=== PATIENT | male | born 1980 | race Asian ===

== ENCOUNTER 2024-09-30 17:24 | Emergency (ER) | payer OTHER, SELFPAY ==
[2024-09-30 17:45] VITALS: BP 116/65; PULSE 76; RESP 19; TEMP 36.9; O2SAT 98; BMI 29.2
== END 2024-09-30 20:00 | disposition left against medical advice (07) ==
PROVIDERS: Emergency Provider Emergency Medicine
DX: M79.89 Other specified soft tissue disorders (principal)
CPT/HCPCS: 99281

== ENCOUNTER 2025-05-25 16:09 | Emergency (ER) | payer OTHER, SELFPAY ==
[2025-05-25 16:42] VITALS: BP 154/101; PULSE 82; RESP 18; TEMP 37.3; O2SAT 97; BMI 31.9
--- NOTE | 2025-05-25 16:45 | DI.RAD.S_ITS ---
PROCEDURE: XR HAND LT MIN 3V INDICATIONS: pain TECHNIQUE: 3 views of the hand(s) acquired. COMPARISON: None. FINDINGS AND IMPRESSION: Moderately displaced proximal 4th metacarpal shaft fracture. No suspicious soft tissue calcifications. There is surrounding soft tissue swelling. Dictated by: Hilton Bustillos M.D. on 05/25/2025 at 17:58 Approved by: Hilton Bustillos M.D. on 05/25/2025 at 17:58
[2025-05-25] MEDS: KETOROLAC 30 MG/ML VIAL IM (18:04)
[2025-05-25] MEDS: ACETAMINOPHEN 325 MG TABLET 975 MG PO (18:05)
--- NOTE | 2025-05-25 18:28 | ED.UPPEXIN ---
HPI - Extremity Injury (Upper) <Lauri Andrade PA-C - Last Filed: 05/25/25 18:41> General Chief Complaint: Extremity Injury, Upper Stated Complaint: broken left hand Time Seen by Provider: 05/25/25 16:45 Source: patient Mode of arrival: Ambulatory History of Present Illness HPI narrative: 44-year-old male presents to the ED with 1 week of left hand swelling, after a basketball injury. Patient endorses swelling, pain in the left hand. Denies numbness, tingling, weakness. Patient has hand was x-rayed at the [facility] which shows a 4th metacarpal shaft fracture. Related Data Allergies Allergy/AdvReac Type Severity Reaction Status Date / Time No Known Drug Allergies Allergy Verified 05/25/25 16:42 Review of Systems <Lauri Andrade PA-C - Last Filed: 05/25/25 18:41> Constitutional Constitutional: Denies chills, Denies fatigue, Denies fever(s), Denies frequent falls, Denies lethargy and Denies weakness Eyes Eyes: Denies change in vision, Denies eye discharge, Denies irritation and Denies loss of vision ENT Ears, Nose, Mouth, and Throat: Denies change in voice, Denies dizziness, Denies neck pain, Denies sore throat and Denies throat swelling Cardiovascular Cardiovascular: Denies chest pain, Denies irregular heart rhythm, Denies lightheadedness, Denies palpitations, Denies dyspnea, Denies dyspnea on exertion and Denies orthopnea Respiratory Respiratory: Denies cough, Denies dyspnea, Denies dyspnea on exertion and Denies wheezing Gastrointestinal Gastrointestinal: Denies abdominal pain, Denies change in bowel habits, Denies diarrhea, Denies nausea and Denies vomiting Musculoskeletal Musculoskeletal: Denies neck pain and Denies numbness Comments: Left hand swelling, pain Integumentary/Breasts Skin/Breast: Denies pruritus, Denies erythema, Denies rash and Denies wounds Neurologic Neurologic: Denies behavioral changes, Denies confusion, Denies dizziness, Denies frequent falls, Denies loss of vision, Denies numbness and Denies weakness Psychiatric Psychiatric: Denies anxiety, Denies behavioral changes, Denies confusion, Denies depression, Denies homicidal ideation and Denies suicidal ideation Endocrine Endocrine: Denies fatigue, Denies flushing and Denies palpitations Hematologic/Lymphatic Hematologic/Lymphatic: Denies easy bruising Allergic/Immunologic Allergic/Immunologic: Denies urticaria, Denies throat swelling and Denies wheezing Patient History <Lauri Andrade PA-C - Last Filed: 05/25/25 18:41> Social History Smoking Status: Never smoker Smoking Status: Never smoker Exam <Lauri Andrade PA-C - Last Filed: 05/25/25 18:41> Narrative Exam Narrative: Const General:?cooperative, healthy appearing and comfortable [facility] Head:?normal to inspection Ears:?hearing grossly normal bilaterally Nose:?external nose normal Face and sinus:?normal facial exam and sinuses nontender Mouth:?oral mucosae normal Throat:?posterior oropharynx normal Eyes General:?appearance normal, both eyes and all related structures Neck Neck:?normal visual inspection and no lymphadenopathy noted Resp Effort & Inspection:?normal respiratory effort Auscultation:?clear to auscultation bilaterally Cardio Rate:?regular rate Rhythm:?regular rhythm Musculoskeletal There is left hand swelling, tenderness to palpation. Neurovascularly intact. Compartments are soft. Neuro General:?patient alert, patient awake and patient oriented x3 Initial Vital Signs Initial Vital Signs: Vital Signs Temperature 99.2 F 05/25/25 16:42 Pulse Rate 82 05/25/25 16:42 Respiratory Rate 18 05/25/25 16:42 Blood Pressure 154/101 H 05/25/25 16:42 Pulse Oximetry 97 05/25/25 16:42 Oxygen Delivery Method Room Air 05/25/25 16:42 <Juli Barkley DO - Last Filed: 05/26/25 23:32> Initial Vital Signs Initial Vital Signs: Vital Signs Temperature 99.2 F 05/25/25 16:42 Pulse Rate 82 05/25/25 16:42 Respiratory Rate 18 05/25/25 16:42 Blood Pressure 154/101 H 05/25/25 16:42 Pulse Oximetry 97 05/25/25 16:42 Oxygen Delivery Method Room Air 05/25/25 16:42 Course <Lauri Andrade PA-C - Last Filed: 05/25/25 18:41> Orders Ordered: Discontinued Medications Acetaminophen (Acetaminophen 325 Mg Tablet) 975 mg PO NOW ONE Stop: 05/25/25 16:46 Last Admin: 05/25/25 18:05 Dose: 975 mg Documented By: ELLA Ketorolac Tromethamine (Ketorolac 30 Mg/Ml Vial) 30 mg IM NOW ONE Stop: 05/25/25 16:46 Last Admin: 05/25/25 18:04 Dose: 30 mg Documented By: ELLA Vital Signs Vital signs: Vital Signs - 8 hr 05/25/25 16:42 Temperature 99.2 F Pulse Rate 82 Respiratory Rate 18 Blood Pressure 154/101 H Pulse Oximetry 97 Oxygen Delivery Method Room Air <Juli Barkley DO - Last Filed: 05/26/25 23:32> Orders Ordered: Discontinued Medications Acetaminophen (Acetaminophen 325 Mg Tablet) 975 mg PO NOW ONE Stop: 05/25/25 16:46 Last Admin: 05/25/25 18:05 Dose: 975 mg Documented By: ELLA Ketorolac Tromethamine (Ketorolac 30 Mg/Ml Vial) 30 mg IM NOW ONE Stop: 05/25/25 16:46 Last Admin: 05/25/25 18:04 Dose: 30 mg Documented By: ELLA Vital Signs Vital signs: Vital Signs - 8 hr 05/25/25 16:42 Temperature 99.2 F Pulse Rate 82 Respiratory Rate 18 Blood Pressure 154/101 H Pulse Oximetry 97 Oxygen Delivery Method Room Air MDM - Extremity Injury (Upper) <Lauri Andrade PA-C - Last Filed: 05/25/25 18:41> MDM Narrative Medical decision making narrative: 44-year-old male presents to the ED with 1 week of left hand swelling, after a basketball injury. We will re-x-ray the left hand to confirm any changes to alignment. X-ray shows largely unchanged proximal 4th metacarpal shaft fracture which is moderately displaced. There is some surrounding soft tissue swelling. Compartments are soft. Discussed findings with patient. Recommend ibuprofen or Aleve for pain. Will apply splint, recommend follow-up with ortho. ED return precautions discussed with patient. Patient verbalized understanding. Medical records reviewed: Yes Discharge Plan Departure Patient Disposition: Home Clinical Impression: Boxer's fracture Qualifiers: Encounter type: initial encounter Fracture type: closed Qualified Code(s): S62.339A - Displaced fracture of neck of unspecified metacarpal bone, initial encounter for closed fracture Instructions: DI for Boxer's Fracture Activity Restrictions/Additional Instructions: You were evaluated in the ED today for a left hand injury. You have a fracture of the 4th metacarpal, for which you are being fitted with a splint. Please keep the splint on for 6 weeks. Please follow-up with an ortho specialist as soon as possible. You may take Tylenol, Motrin or Aleve for pain. Return to the emergency room if you have worsening symptoms, numbness, tingling, weakness. Referrals: Provider,Mary PEREZ [Primary Care Provider, Family Practice] Stand Alone Forms: Patient Portal/API ED Sign-out <Juli Barkley DO - Last Filed: 05/26/25 23:32> Cosign ED Attending Ashature Attestation: I was immediately available in the department for consultation.
[2025-05-25 18:49] VITALS: BP 145/94; PULSE 72; RESP 16; O2SAT 99
== END 2025-05-25 18:53 | disposition home or self-care (01) ==
PROVIDERS: Emergency Provider Student in an Organized Health Care Education/Training Program
DX: S62.325A Displaced fracture of shaft of fourth metacarpal bone, left hand, initial encounter for closed fracture (principal); X58.XXXA Exposure to other specified factors, initial encounter; Y93.67 Activity, basketball
CPT/HCPCS: 29125; 73130; 96372; 99283; J1885